=== PATIENT | female | born 1975 | race Caucasian/White ===

== ENCOUNTER 2022-09-20 03:00 | Emergency (ER) | payer OTHER ==
[2022-09-20 03:10] VITALS: BMI 34.3
[2022-09-20] MEDS ORDERED: ACETAMINOPHEN 1000 MG/100 ML BAG IVPB ONE (03:29)
[2022-09-20] MEDS ORDERED: FAMOTIDINE 20 MG/50 ML IVPB 20 MG/50 ML MG IVPB ONE ×2 (03:29→03:34)
[2022-09-20] MEDS ORDERED: ONDANSETRON 4 MG/2 ML VIAL IVPUSH ONE (03:29)
[2022-09-20] MEDS ORDERED: MAG HYDROX/AL HYDROX/SIMETH 30 ML UNIT-DOSE CUP PO ONE (03:29)
[2022-09-20] MEDS ORDERED: ACETAMINOPHEN INJECTION 100 ML IVPB ONE (03:33)
[2022-09-20] MEDS ORDERED: MAG HYDROX/AL HYDROX/SIMETH 30 ML UNIT-DOSE CUP ONE (03:34)
[2022-09-20] MEDS ORDERED: ONDANSETRON 4 MG/2 ML VIAL ONE (03:34)
[2022-09-20 04:37] LABS: BASO % 0.4 % (0-2.0); EOS % 1.5 % (0-4.5); HEMATOCRIT 35.2 % (32.4-45.2); LYMPH % 16.3 % (8-40); MCH 27.8 pg (25.7-33.7); MEAN CELL VOLUME 81.7 fl (80-96); MONO % 5.8 % (3.8-10.2); PLATELET COUNT 467 10^3/uL (134-434); RBC 4.31 M/mm3 (3.60-5.2); RDW 15.2 % (11.6-15.6); WHITE BLOOD COUNT 11.2 K/mm3 (4.0-10.0)
[2022-09-20] MEDS ORDERED: SODIUM CHLORIDE 0.9% 500 ML INFUS.BAG IV ONE (04:51)
[2022-09-20 05:00] LABS: CALCIUM 8.6 mg/dL (8.5-10.1)
[2022-09-20 05:01] LABS: ALBUMIN 3.6 g/dl (3.4-5.0); BLOOD UREA NITROGEN 13.4 mg/dL (7-18)
[2022-09-20 05:04] LABS: CREATININE 0.7 mg/dL (0.55-1.3)
[2022-09-20 05:05] LABS: BILIRUBIN,TOTAL 0.3 mg/dL (0.2-1); TOT PROT 7.6 g/dl (6.4-8.2)
[2022-09-20 10:25] VITALS: TEMP 98.2
[2022-09-20 11:36] VITALS: BP 112/69; PULSE 71; RESP 15
== END 2022-09-20 11:44 | disposition home or self-care (01) ==
LOC: JER 03:00
PROC: 3E033GC Introduction of Other Therapeutic Substance into Peripheral Vein, Percutaneous Approach (ICD-10-PCS; principal; 2022-09-20)
DX: R10.13 Epigastric pain (principal)
CPT/HCPCS: 36415; 71045-TC-FY; 74177-TC; 76705-TC; 80053; 83690; 84484; 84703; 85025; 93005; 93010; 99285-25; Q9967